=== PATIENT | female | born 1995 | race Caucasian/White ===

== ENCOUNTER 2017-12-25 11:06 | Inpatient (IN) ==
[2017-12-25] MEDS ORDERED: Ipratropium/Albuterol Neb 3 ML ONE (11:23)
[2017-12-25] MEDS ORDERED: Albuterol 2.5 MG/3 ML NEBULIZER IH ONE ×2 (11:30→18:03)
[2017-12-25] MEDS ORDERED: methylPREDNISolone 125 MG/2 ML VIAL IVP ONE (11:30)
--- NOTE | 2017-12-25 11:34 | Emergency Department Note ---
Disposition Clinical Impression: Hypoxia Asthma with exacerbation Qualifiers: Asthma severity: moderate Asthma persistence: persistent Qualified Code(s): J45.41 - Moderate persistent asthma with (acute) exacerbation Disposition: Admitted As Inpatient Condition: Fair Referrals: Lopez Wallis CNP [Primary Care Provider] - Forms: ED Satisfaction Letter Time of Disposition: 16:42 SOB HPI - General Chief Complaint: ED Shortness of Breath/Dyspnea Stated Complaint: ALYSA Time Seen by Provider: 12/25/17 11:25 Source: patient Limitations: no limitations Nursing Notes Reviewed: Yes Vital Signs Reviewed: Yes - History of Present Illness Mrs. Melendez, 22-year-old female 17 weeks , presents from home with for a history of progressive dyspnea with associated lightheadedness. Not improved with her home albuterol. She has productive cough. She notes right subcostal pain with deep inspiration. No fever. History of pneumonia at 17 weeks with first necessitating ICU stay. She states her symptoms today feel similar as her prior pneumonia but are not yet as severe. Her to date has been uncomplicated with appropriate care through her OB. OB: [facility] ROS: Positive: As above Negative: Syncope, contractions, vaginal discharge, fever, nausea, vomiting, change in appetite, change in urination - Related Data Home Medications Medication Instructions Recorded Confirmed Albuterol Sulfate [Albuterol 2 puff IH Q4HR 11/24/15 12/25/17 Inhaler] Pnv No.122/Iron/Folic Acid 1 tab PO DAILY 12/25/17 12/25/17 [ Multi Tablet] Previous Rx's Medication Instructions Recorded Albuterol Neb [Proventil Neb] 2.5 mg IH [id number] PRN #0 inhsol 05/07/16 Allergies Allergy/AdvReac Type Severity Reaction Status Date / Time Amoxicillin Allergy Hives Verified 12/25/17 11:17 Penicillins [PCN] Allergy Anaphylaxis Verified 12/25/17 11:17 Sulfa (Sulfonamide Allergy Hives Verified 12/25/17 11:17 Antibiotics) sulfamethoxazole Allergy Anaphylaxis Verified 12/25/17 11:17 [From Bactrim] trimethoprim [From Bactrim] Allergy Anaphylaxis Verified 12/25/17 11:17 All systems ED: reviewed and negative except as stated. Review of Systems: As Per HPI Past Medical History - Past Medical History Medical history: Reports: asthma, migraine, other Surgical history: Reports: Psychiatric history: Reports: depression - Social History Smoking Status: Former smoker Smokeless Tobacco Status: No Alcohol use: Reports: none Drug use: Reports: none Physical Exam Vital Signs Reviewed General: Patient is alert, oriented, and in no acute distress. Head: atraumatic, normocephalic Eye: normal appearance, PERRL, EOMI, no scleral icterus, no conjunctival injection ENT: mucous membranes moist, normal external ear exam Neck: normal inspection, trachea midline, full ROM Chest: normal inspection, symmetric chest rise Respiratory: Good respiratory effort. Bilateral breath sounds have profuse wheeze without crackles or rhonchi. Breath sounds equal bilaterally. Cardiovascular: Regular rate and rhythm. No clicks, rubs, gallops, or murmors. Normal heart sounds. Abdomen: Bowel sounds present normoactive x-4 quadrants. Abdomen is soft, nondistended, and nontender. No guarding or rebound. Musculoskeletal: Spontaneously moving all extremities. Skin: warm, dry, intact. Neuro: Alert and oriented x4. Sensation light touch intact. Psych: Patient's affect is appropriate for situation. - General Limitations: no limitations General appearance: alert, anxious, in distress Course Course Narrative: Patient is 91% on room air on intake. She has diffuse coarse wheezes. After albuterol nebulizer, she continues to be 91% on room air with no change in lung sounds. After DuoNeb nebulizer, she is now 92-93% on room air with no improvement in lung sounds. She continues to be tachycardic hours no longer tachypneic. Chest x-ray is unremarkable for pneumonia. Neither myself nor the patient are comfortable with her going home in her current state. She was agreeable to admission for continued evaluation and management. I discussed the patient with the admitting hospital is. He is uncomfortable except in position without obstetric consult, pulmonology consult, and ABG. Will provide these and then re-contact him. 15:00 I spoke with Sonali of [employer] regarding the patient. She is agreeable to etc. consult and notes no restrictions from an obstetric standpoint on nebulizers or antibiotics. 15:[address] Rogel, pulmonology who agrees to see the patient as consult. He has no additional recommendations at this time. 16:15 Spoke with the admitting hospitalist, Dr. Yanez, agrees to accept the patient with pulmonology and OB following. He requests empiric antibiotic coverage for the patient. Patient is saturating 90% on room air. Lung sounds remain coarse after third nebulizer treatment. She has been evaluated by pulmonology who agrees the patient be admitted to the floor. She is nontoxic-appearing but still not yet baseline. Chest X-Ray 12/25/17 11:31 IMPRESSION: No acute cardiopulmonary disease. D/ / Jeremy Antunez MD / Jeremy Antunez MD Interpreting Provider: Jeremy Antunez MD Vital Signs Temperature 97.9 F 12/25/17 11:14 Pulse Rate 140 12/25/17 11:14 Respiratory Rate 24 12/25/17 11:14 Blood Pressure 116/63 12/25/17 11:14 O2 Sat by Pulse Oximetry 90 12/25/17 11:14 Temperature 97.9 F 12/25/17 11:14 Pulse Rate 132 12/25/17 15:41 Respiratory Rate 18 12/25/17 15:41 Blood Pressure 93/57 12/25/17 15:41 O2 Sat by Pulse Oximetry 94 12/25/17 15:41 Oxygen Delivery Oxygen Delivery Room Air Shortness of Breath/Dyspnea - Lab Data Result diagrams: 12/25/17 11:47 12/25/17 11:47 Lab Results 12/25/17 12/25/17 12/25/17 Range/Units 11:47 11:47 11:47 WBC 16.9 H (4.3-11.1) K/mcL RBC 4.60 (3.82-4.97) M/mcL Hgb 13.8 (11.5-15.4) g/dL Hct 39.3 (35.3-44.9) % MCV 85.4 (83.0-100.0) fL MCH 30.0 (28.0-33.3) pg MCHC 35.1 (31.6-35.5) g/dL RDW 12.7 (11.5-14.5) % Plt Count 251 (140-400) K/mcL MPV 10.6 (9.4-12.4) fL Immature Gran % 0.3 (0-4) % Seg Neutrophils % 81.0 % Lymphocytes % 9.6 % Monocytes % 3.6 % Eosinophils % 5.3 % Basophils % 0.2 % Neutrophils # 13.7 H (1.6-8.9) K/mcL Lymphocytes # 1.6 (0.6-4.6) K/mcL Monocytes # 0.6 (0.0-1.3) K/mcL Eosinophils # 0.9 H (0.0-0.6) K/mcL Basophils # 0.0 (0.0-0.2) K/mcL ABG pH (7.32-7.45) pH Units ABG pCO2 (35-45) mmHg ABG pO2 (85-104) mmHg ABG HCO3 (21-27) mEq/L ABG Total CO2 (20-26) mEq/L ABG O2 Saturation (95-98) % ABG Base Excess (-2 to 3) mEq/L Jack Test O2 Delivery Device Inspired O2 (1-15=lpm [id number]=%) Sodium 135 L (136-145) mEq/L Potassium 4.1 (3.5-5.1) mEq/L Chloride 105 (98-107) mEq/L Carbon Dioxide 24 (23-29) mEq/L BUN 7 (6-20) mg/dL Creatinine 0.52 L (0.60-1.20) mg/dL Est GFR ( Amer) > 60 (> 60) Est GFR (Non-Af Amer) > 60 (> 60) BUN/Creatinine Ratio 13 (6-26) Glucose 87 (70-105) mg/dL Calculated Osmolality 277 L (280-300) Lactic Acid 1.1 (0.5-2.2) mmol/L Calcium 9.8 (8.6-10.3) mg/dL 12/25/17 Range/Units 15:55 WBC (4.3-11.1) K/mcL RBC (3.82-4.97) M/mcL Hgb (11.5-15.4) g/dL Hct (35.3-44.9) % MCV (83.0-100.0) fL MCH (28.0-33.3) pg MCHC (31.6-35.5) g/dL RDW (11.5-14.5) % Plt Count (140-400) K/mcL MPV (9.4-12.4) fL Immature Gran % (0-4) % Seg Neutrophils % % Lymphocytes % % Monocytes % % Eosinophils % % Basophils % % Neutrophils # (1.6-8.9) K/mcL Lymphocytes # (0.6-4.6) K/mcL Monocytes # (0.0-1.3) K/mcL Eosinophils # (0.0-0.6) K/mcL Basophils # (0.0-0.2) K/mcL ABG pH 7.49 H (7.32-7.45) pH Units ABG pCO2 26 L (35-45) mmHg ABG pO2 82 L (85-104) mmHg ABG HCO3 20 L (21-27) mEq/L ABG Total CO2 20 (20-26) mEq/L ABG O2 Saturation 97 (95-98) % ABG Base Excess -2 (-2 to 3) mEq/L Jack Test N/A O2 Delivery Device AeroTx Inspired O2 8.0 (1-15=lpm [id number]=%) Sodium (136-145) mEq/L Potassium (3.5-5.1) mEq/L Chloride (98-107) mEq/L Carbon Dioxide (23-29) mEq/L BUN (6-20) mg/dL Creatinine (0.60-1.20) mg/dL Est GFR ( Amer) (> 60) Est GFR (Non-Af Amer) (> 60) BUN/Creatinine Ratio (6-26) Glucose (70-105) mg/dL Calculated Osmolality (280-300) Lactic Acid (0.5-2.2) mmol/L Calcium (8.6-10.3) mg/dL
[2017-12-25 12:02] LABS: Basophils % 0.2 %; Eosinophils # 0.9 K/mcL (0.0-0.6); Eosinophils % 5.3 %; Hematocrit 39.3 % (35.3-44.9); Hemoglobin 13.8 g/dL (11.5-15.4); Immature Granulocytes % 0.3 % (0-4); Lymphocytes # 1.6 K/mcL (0.6-4.6); Lymphocytes % 9.6 %; Mean Corpuscular HGB Conc 35.1 g/dL (31.6-35.5); Mean Corpuscular Volume 85.4 fL (83.0-100.0); Mean Platelet Volume 10.6 fL (9.4-12.4); Monocytes # 0.6 K/mcL (0.0-1.3); Monocytes % 3.6 %; Neutrophils # 13.7 K/mcL (1.6-8.9); Platelet Count 251 K/mcL (140-400); Red Cell Distribution Width 12.7 % (11.5-14.5)
[2017-12-25 12:25] LABS: BUN/Creatinine Ratio 13 (6-26); Blood Urea Nitrogen 7 mg/dL (6-20); Calcium 9.8 mg/dL (8.6-10.3); Carbon Dioxide 24 mEq/L (23-29); Chloride 105 mEq/L (98-107); Glucose 87 mg/dL (70-105); Osmolality,Calculated 277 (280-300); Potassium 4.1 mEq/L (3.5-5.1); Sodium 135 mEq/L (136-145); eGFR For African Americans > 60 (> 60); eGFR For Non-African Americans > 60 (> 60)
[2017-12-25] MEDS ORDERED: Ipratropium/Albuterol Neb 3 ML IH ONE (13:08)
--- NOTE | 2017-12-25 13:20 | Emergency Department Note ---
START Narrative - START START: I examined this patient and my medical decision-making was reviewed with the Resident Physician. I agree with the documented findings, disposition and treatment plan as described except to the extent set forth below. 22-year-old female who is currently 17 weeks presents to the ER for asthma problems. She was concerned she was developing pneumonia again. She has had this in the past. She also has a history of asthma. Her chest x-ray today is unremarkable. No signs of pneumonia. She was slightly hypoxic upon arrival. She was given some breathing treatments. This did seem to improve. She is still feeling slightly short of breath with some pressure and wheezing. We will repeat another breathing treatment. She was also given steroids.
[2017-12-25] MEDS ORDERED: Albuterol Neb 1.25 MG/3 ML VIAL IH ONE (15:04)
[2017-12-25 15:59] LABS: ABG Base Excess -2 mEq/L (-2 to 3); ABG HCO3 20 mEq/L (21-27); ABG Oxygen Saturation 97 % (95-98); ABG PCO2 26 mmHg (35-45); ABG PH 7.49 pH Units (7.32-7.45); ABG PO2 82 mmHg (85-104); ABG TCO2 20 mEq/L (20-26)
[2017-12-25] MEDS ORDERED: Clindamycin 900 MG/50 ML 900 MG/50 ML IV.SOLN IVPB ONE (16:15)
--- NOTE | 2017-12-25 16:27 | Pulmonology Consult Note ---
Date of Encounter: 12/26/17 Time of Encounter: 15:45 Assessment and Plan (1) Asthma exacerbation Current Visit: No Status: Acute Patient is being having worsening of her symptoms and she is requiring more use of short-acting bronchodilators. Asthmatic could worsen in / of October and patient with asthma and I have explained to her about side effects of the bronchodilators and benefits of the treatment outweighed the risks and she understand that. Patient will need bronchodilators and systemic steroid and her ABG is consistent with respiratory alkalosis which could be normal physiologic changes in , however there is some evidence of hypoxia and patient will be admitted to the hospital. I have explained to her when she discharged from the hospital she needs to follow up with the pulmonary clinic since she is undertreated for her asthma. This is discussed with the ER physician and thank you for consultation we will continue follow-up. Qualifiers: Asthma severity: severe Asthma persistence: persistent Qualified Code(s) : J45.51 - Severe persistent asthma with (acute) exacerbation (2) Asthma affecting , antepartum Current Visit: No Status: Chronic (3) 17 weeks gestation of Current Visit: No Status: Acute History of Present Illness Consult date: 12/25/17 Requesting physician: Hernan Tomlin Reason for consult: asthma Chief complaint: Difficulty breathing History of present illness: This is very pleasant 22-year-old female with history of asthma and she is been using short-acting bronchodilators for her asthma which has been worsening lately. This is her second and she stated she had pneumonia with her first and she is 17 weeks . Patient has more shortness of breath associated with lightheadedness and denies any hemoptysis. She also has productive cough with chest pain during deep inspiration. She denies any fever or chills and she has not been taking antibiotics. 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 She denies any previous intubation or recent hospitalization for asthma exacerbation. Past Med Surg Social Fam HX - Past Medical History Medical history: asthma, migraine, other Psychiatric history: depression - Past Surgical History Surgical History: - Social History Smoking Status: Former smoker Smokeless Tobacco Status: No Alcohol use: none Drug use: none - Family History Mother Adopted: No Family Member Ethnicity: Non- Living Status: Still Living Hx Family Cardiac Disorders: No Hx Family Respiratory Disorders: No Hx Family Cancer: No Hx Family GI Disorders: No Hx Family Endocrine Disorder: No Hx Family Neuromuscular Disorders: No Hx Family Neurologic Disorders: No Hx Family HEENT Disorders: No Hx Family Autoimmune Disorders: No Medications and Allergies Albuterol Sulfate [Albuterol Inhaler] 2 puff IH Q4HR 11/24/15 [History] Albuterol Neb [Proventil Neb] 2.5 mg IH [id number] PRN #0 inhsol 05/07/16 [Rx] Pnv No.122/Iron/Folic Acid [ Multi Tablet] 1 tab PO DAILY 12/25/17 [ History] 3 Allergy/AdvReac Type Severity Reaction Status Date / Time Amoxicillin Allergy Hives Verified 12/25/17 11:17 Penicillins [PCN] Allergy Anaphylaxis Verified 12/25/17 11:17 Sulfa (Sulfonamide Allergy Hives Verified 12/25/17 11:17 Antibiotics) sulfamethoxazole Allergy Anaphylaxis Verified 12/25/17 11:17 [From Bactrim] trimethoprim [From Bactrim] Allergy Anaphylaxis Verified 12/25/17 11:17 All Systems: The remainder of the systems were reviewed and are negative Physical Examination Vital Signs: Vital Signs, Last 4 Hours Pulse Resp BP Pulse Ox 12/25/17 15:41 132 18 93/57 94 12/25/17 13:46 130 18 91 12/25/17 12:48 128 20 91/66 95 General appearance: no acute distress Eyes: nonicteric ENT: oropharynx moist Mallampati (class): 3 Neck: supple Effort: normal Inspection: normal Auscultation: bilateral: wheezes Percussion: bilateral: not dull Cardiovascular: regular rate and rhythm Gastrointestinal: normoactive bowel sounds, non-distended, other ( abdomen) Integumentary: normal Extremities: no cyanosis normal mental status, non-focal exam mood appropriate Results - Laboratory Findings CBC and BMP: 12/26/17 03:32 12/26/17 03:32 ABG ABG pH 7.49 pH Units (7.32-7.45) H 12/25/17 15:55 ABG pCO2 26 mmHg (35-45) L 12/25/17 15:55 ABG pO2 82 mmHg (85-104) L 12/25/17 15:55 ABG O2 Saturation 97 % (95-98) 12/25/17 15:55 Abnormal lab findings: Abnormal lab results WBC 16.9 K/mcL (4.3-11.1) H 12/25/17 11:47 Neutrophils # 13.7 K/mcL (1.6-8.9) H 12/25/17 11:47 Eosinophils # 0.9 K/mcL (0.0-0.6) H 12/25/17 11:47 ABG pH 7.49 pH Units (7.32-7.45) H 12/25/17 15:55 ABG pCO2 26 mmHg (35-45) L 12/25/17 15:55 ABG pO2 82 mmHg (85-104) L 12/25/17 15:55 ABG HCO3 20 mEq/L (21-27) L 12/25/17 15:55 Sodium 135 mEq/L (136-145) L 12/25/17 11:47 Creatinine 0.52 mg/dL (0.60-1.20) L 12/25/17 11:47 Calculated Osmolality 277 (280-300) L 12/25/17 11:47 - Diagnostic Findings Chest x-ray: report reviewed, image reviewed - Clinical Findings Intake & Output: Intake & Output 12/25/17 12/25/17 12/25/17 07:59 15:59 23:59 Weight 95.254 kg Consult Discharge Plan - Plan Referrals: Lopez Wallis CNP [Primary Care Provider] -
[2017-12-25] MEDS ORDERED: Levalbuterol Neb 1.25 MG/3 ML IH STA (18:19)
[2017-12-25] MEDS ORDERED: predniSONE 20 MG TABLET PO SCH (21:00)
--- NOTE | 2017-12-25 21:19 | OB/GYN Consult Note ---
Date of Encounter: 12/25/17 Time of Encounter: 21:13 Assessment and Plan (1) Pain of round ligament affecting , antepartum Current Visit: Yes Status: Acute Pain reproducible with palpation. Pt educated regarding this type of pain. (2) Asthma with exacerbation Current Visit: Yes Status: Acute Management per primary team. Qualifiers: Asthma severity: moderate Asthma persistence: persistent Qualified Code(s ): J45.41 - Moderate persistent asthma with (acute) exacerbation (3) 17 weeks gestation of Current Visit: No Status: Acute FHT 152 BPM via doppler. We will continue to follow and get daily FHT. History of Present Illness Consult date: 12/25/17 Reason for consult: other (17 weeks gestation with acute asthma exacerbation) Chief complaint: shortness of breath History of present illness: 22 year-old presenting at 17 weeks gestation for shortness of breath. She has asthma that worsens when she is . She reports she was admitted to ICU at this same gestational age with her last for her asthma. She states the shortness of breath and wheezing started getting worse yesterday so she went to see her doctor today. She was prescribed antibiotics and steroids, but after her appt she became increasingly short of breath and decided to come to the ER. She reports no other complications with this or her first. SHe had a delivery at 41 weeks last after a failed IOL. Today she denies contractions, leaking, or bleeding. SHe does report occassional sharp pains in her LLQ that are consistent with round ligament pain. Past Med Surg Social Fam HX - Past Medical History Medical history: asthma, migraine, other Psychiatric history: depression - Past Surgical History Surgical History: - Social History Smoking Status: Former smoker Smokeless Tobacco Status: No Alcohol use: none Drug use: none - Family History Mother Adopted: No Family Member Ethnicity: Non- Living Status: Still Living Hx Family Cardiac Disorders: No Hx Family Respiratory Disorders: No Hx Family Cancer: No Hx Family GI Disorders: No Hx Family Endocrine Disorder: No Hx Family Neuromuscular Disorders: No Hx Family Neurologic Disorders: No Hx Family HEENT Disorders: No Hx Family Autoimmune Disorders: No Medications and Allergies Albuterol Sulfate [Albuterol Inhaler] 2 puff IH Q4HR 11/24/15 [History] Albuterol Neb [Proventil Neb] 2.5 mg IH [id number] PRN #0 inhsol 05/07/16 [Rx] Pnv No.122/Iron/Folic Acid [ Multi Tablet] 1 tab PO DAILY 12/25/17 [ History] 3 Allergy/AdvReac Type Severity Reaction Status Date / Time Amoxicillin Allergy Hives Verified 12/25/17 11:17 Penicillins [PCN] Allergy Anaphylaxis Verified 12/25/17 11:17 Sulfa (Sulfonamide Allergy Hives Verified 12/25/17 11:17 Antibiotics) sulfamethoxazole Allergy Anaphylaxis Verified 12/25/17 11:17 [From Bactrim] trimethoprim [From Bactrim] Allergy Anaphylaxis Verified 12/25/17 11:17 Review of Systems Constitutional: no fever(s), no headache(s) Cardiovascular: dyspnea Respiratory: dyspnea Genitourinary Female: pelvic pain (occassional sharp LLQ pain) Menstruation: amenorrhea (due to ) Exam - Vital Signs Vital signs: Initial Vital Signs Temp Pulse Resp BP Pulse Ox 97.9 F 140 24 116/63 90 12/25/17 11:14 12/25/17 11:14 12/25/17 11:14 12/25/17 11:14 12/25/17 11:14 - Constitutional Constitutional: well developed, well nourished - HEENT HEENT: Mucus Membranes Moist - Lungs Respiratory exam: respiratory distress, wheezes (in all lung winn, on 4 liters ) - Cardiovascular Cardiovascular exam: tachycardia - Abdomen Abdomen: Present: gravid, non tender - Extremities Extremities exam: normal inspection - Uterus Uterus exam: Present: normal size. Absent: tender - Comments Comments: FHT 152 via doppler Results Result Diagrams: 12/25/17 11:47 12/25/17 11:47 Abnormal lab results WBC 16.9 K/mcL (4.3-11.1) H 12/25/17 11:47 Neutrophils # 13.7 K/mcL (1.6-8.9) H 12/25/17 11:47 Eosinophils # 0.9 K/mcL (0.0-0.6) H 12/25/17 11:47 ABG pH 7.49 pH Units (7.32-7.45) H 12/25/17 15:55 ABG pCO2 26 mmHg (35-45) L 12/25/17 15:55 ABG pO2 82 mmHg (85-104) L 12/25/17 15:55 ABG HCO3 20 mEq/L (21-27) L 12/25/17 15:55 Sodium 135 mEq/L (136-145) L 12/25/17 11:47 Creatinine 0.52 mg/dL (0.60-1.20) L 12/25/17 11:47 Calculated Osmolality 277 (280-300) L 12/25/17 11:47 All other labs normal. Consult Discharge Plan - Plan Referrals: Lopez Wallis, [employer] ADMINISTRATOR [Primary Care Provider] -
[2017-12-25] MEDS: Budesonide/Formoterol 160/4.5 MDI IH SCH (21:44)
[2017-12-25] MEDS ORDERED: Naloxone 0.4 MG/ML INJ IVP PRN (22:27)
[2017-12-25 22:36] LABS: ABG Base Excess -3 mEq/L (-2 to 3); ABG HCO3 19 mEq/L (21-27); ABG Oxygen Saturation 95 % (95-98); ABG PCO2 27 mmHg (35-45); ABG PH 7.46 pH Units (7.32-7.45); ABG PO2 68 mmHg (85-104); ABG TCO2 20 mEq/L (20-26)
--- NOTE | 2017-12-25 22:44 | Internal Med History&Physical ---
Date of Encounter: 12/25/17 Time of Encounter: 22:37 Internal Medicine - H&P: HPI Chief complaint: shortness of breath Admitted From: Emergency Dept Plans for Post Hospital Care: Home History of present illness: Ms. Melendez is a 22 year old female was a background history of her bronchial asthma, she was taking short-acting bronchodilators from her primary care provider and was not placed on any steroids. Patient is 17 weeks came to emergency room with the persistent shortness of breath. Patient went to her primary care provider with the similar symptoms and received steroids/antibiotics. Patient tried those medication but apparently her symptoms were progressively getting worse and that is the reason she came to emergency room for further evaluation. This is the patient's second and during her first when she was 17 weeks , at that time she had a pneumonia/exacerbation of bronchial asthma for which she was hospitalized and admitted in the ICU. She was never intubated at that time. Patient has a consultation at [facility]. Patient denies fever, nausea, vomiting, change in urination, any contractions. Workup in the emergency room: Patient was evaluated in the emergency room. Basic labs were drawn. Patient was evaluated by hand cell tuber and recommended oral prednisone/inhaled steroids. Patient was seen by COBBLER SOLE and has no preference for antibiotics/bronchodilators. As per pulmonary, patient does not need ICU stay. Reason for admission: Acute exacerbation of bronchial asthma in a patient who 17 week . Past Med Surg Social Fam HX - Past Medical History Medical history: asthma, migraine, other Psychiatric history: depression - Past Surgical History Surgical History: - Social History Smoking Status: Former smoker Smokeless Tobacco Status: No Alcohol use: none Drug use: none - Family History Mother Adopted: No Family Member Ethnicity: Non- Living Status: Still Living Hx Family Cardiac Disorders: No Hx Family Respiratory Disorders: No Hx Family Cancer: No Hx Family GI Disorders: No Hx Family Endocrine Disorder: No Hx Family Neuromuscular Disorders: No Hx Family Neurologic Disorders: No Hx Family HEENT Disorders: No Hx Family Autoimmune Disorders: No Internal Medicine - H&P: Meds Albuterol Sulfate [Albuterol Inhaler] 2 puff IH Q4HR 11/24/15 [History] Albuterol Neb [Proventil Neb] 2.5 mg IH [id number] PRN #0 inhsol 05/07/16 [Rx] Pnv No.122/Iron/Folic Acid [ Multi Tablet] 1 tab PO DAILY 12/25/17 [ History] 3 Allergy/AdvReac Type Severity Reaction Status Date / Time Amoxicillin Allergy Hives Verified 12/25/17 11:17 Penicillins [PCN] Allergy Anaphylaxis Verified 12/25/17 11:17 Sulfa (Sulfonamide Allergy Hives Verified 12/25/17 11:17 Antibiotics) sulfamethoxazole Allergy Anaphylaxis Verified 12/25/17 11:17 [From Bactrim] trimethoprim [From Bactrim] Allergy Anaphylaxis Verified 12/25/17 11:17 All Systems PM: A 10-system review of systems was performed and is negative for pertinent findings except as documented above in the HPI. - Constitutional Constitutional: no chills, no fever(s), no night sweats - EENT Eyes: no change in vision, no discharge, no pain, no photophobia Ears: no ear discharge, no ear pain, no tinnitus Nose, mouth and throat: no dysphagia, no nasal discharge, no neck pain, no sore throat - Cardiovascular Cardiovascular ROS IM: no chest pain, no diaphoresis, no dyspnea, no lightheadedness, no palpitations, no syncope - Respiratory Respiratory: no cough, no dyspnea, no wheezing, no excessive phlegm production - Gastrointestinal Gastrointestinal: no abdominal pain, no diarrhea, no hematemesis, no hematochezia, no melena, no nausea, no vomiting - Genitourinary Genitourinary: no change in urinary stream, no dysuria, no flank pain, no hematuria - Musculoskeletal Musculoskeletal ROS IM: no numbness, no tingling - Integumentary Integumentary IM: no rash, no unusual bruising - Neurological Neurological ROS: no confusion, no convulsions, no focal weakness, no numbness, no tingling, no tremor(s) - Hematologic/Lymphatic Hematologic/Lymphatic: no easy bruising - Constitutional Vitals: Temp Pulse Resp BP Pulse Ox 97.6 F 132 20 125/65 91 12/25/17 21:07 12/25/17 21:07 12/25/17 21:45 12/25/17 21:07 12/25/17 21:45 General appearance: Present: A&O X 3, pleasant, no acute distress, answers questions appropriately - Head Head exam: Present: atraumatic, normocephalic - Eye Eye exam: Present: PERRL, conjuntiva pink, sclera anicteric Pupils: Present: PERRL - Neck Neck exam general surgery: Present: supple, trachea midline. Absent: lymphadenopathy - Respiratory Respiratory exam: Present: accessory muscle use, CTAB, prolonged expiratory phase, wheezes. Absent: rales, rhonchi - Cardiovascular Cardiovascular exam: Present: RRR, +S1, +S2. Absent: diastolic murmur, gallop, rubs, systolic murmur - GI/Abdominal GI/Abdominal exam: Present: normal bowel sounds, soft, no peritoneal signs. Absent: distended, tenderness - Extremities Exam Extremities exam: Present: warm, radial pulses palpable and symmetrical. Absent : calf tenderness, cyanotic, pedal edema - Neurological Exam Neurological exam: Present: CN II-XII intact, oriented X3, no focal deficits. Absent: pronater drift, facial droop, speech deficit - Skin Skin exam: Present: dry, intact Internal Med - H&P Results - Labs CBC & Chem 7: 12/25/17 11:47 12/25/17 11:47 - ABG Interpretation ABG results: 12/25/17 22:33 ABG pH 7.46 H ABG pCO2 27 L ABG pO2 68 L ABG HCO3 19 L ABG Total CO2 20 ABG O2 Saturation 95 ABG Base Excess -3 L - Assessment and plan (1) Asthma with exacerbation Current Visit: Yes Status: Acute Assessment and plan: Patient is known to have of bronchial asthma since age of 3 years. Admitted with asthma exacerbation. Precipitating factor: Possible /infection. Plan: Admitted stepdown unit. Telemetry. Continuous pulse oximetry. Oxygen supplementation to keep SPO2 more than 95. Regular diet. Intravenous clindamycin Oral prednisone/inhaled corticosteroids. We will follow the recommendations from pulmonology. We will follow the recommendations from COBBLER SOLE. If patient clinically worsens then we will transfer her to ICU for further evaluation/management. Plan of care discussed with the patient and she verbalized understanding. At the time of examination patient's fiance was present in the room and she gave permission to talk about her health in front of him. Qualifiers: Asthma severity: moderate Asthma persistence: persistent Qualified Code(s ): J45.41 - Moderate persistent asthma with (acute) exacerbation (2) 17 weeks gestation of Current Visit: No Status: Acute Assessment and plan: Patient is 17 weeks at this time point. We will get opinion from COBBLER SOLE. We will follow the recommendations. I understood that COBBLER SOLE does not have any preference regarding antibiotics/ normal limits. In view of multiple allergies we will place patient on clindamycin which was initiated by emergency room physician.. (3) DVT prophylaxis Current Visit: No Status: Acute Assessment and plan: SCD Medical decision making: This patient has a moderate to severe risk of worsening in spite of being on appropriate medication due to the underlying complex medical comorbid conditions. - Time Spent With Patient Total time spent is greater than 50% in coordination of care (as documented) at patient's floor/unit and/or counseling patient:
[2017-12-25] MEDS: Ipratropium/Albuterol Neb 3 ML IH SCH (23:49)
[2017-12-26] MEDS: Clindamycin 900 MG/50 ML 900 MG/50 ML IV.SOLN IVPB SCH ×4 (00:05→23:36)
[2017-12-26 03:43] LABS: Basophils % 0.1 %; Hematocrit 37.2 % (35.3-44.9); Hemoglobin 13.3 g/dL (11.5-15.4); Immature Granulocytes % 0.8 % (0-4); Lymphocytes # 0.9 K/mcL (0.6-4.6); Lymphocytes % 4.1 %; Mean Corpuscular HGB Conc 35.8 g/dL (31.6-35.5); Mean Platelet Volume 10.7 fL (9.4-12.4); Monocytes # 0.5 K/mcL (0.0-1.3); Monocytes % 2.4 %; Neutrophils # 20.9 K/mcL (1.6-8.9); Platelet Count 272 K/mcL (140-400); Red Blood Count 4.43 M/mcL (3.82-4.97); Red Cell Distribution Width 12.3 % (11.5-14.5); Segmented Neutrophils % 92.6 %
[2017-12-26] MEDS: Ipratropium/Albuterol Neb 3 ML IH SCH ×6 (03:47→23:28)
[2017-12-26 03:56] LABS: INR 1.1; Prothrombin Time 11.8 Seconds (9.4-12.1)
[2017-12-26 03:58] LABS: Activated Partial Thrombo Time 29.8 Seconds (26.0-36.0)
[2017-12-26 04:07] LABS: Alanine Aminotransferase 11 Units/L (7-52); Albumin/Globulin Ratio 1.3 (1.1-2.2); Alkaline Phosphatase 61 Units/L (34-104); Aspartate Amino Transferase 9 Units/L (13-39); BUN/Creatinine Ratio 14 (6-26); Bilirubin,Total 0.3 mg/dL (0.3-1.0); Blood Urea Nitrogen 7 mg/dL (6-20); Calcium 9.8 mg/dL (8.6-10.3); Carbon Dioxide 19 mEq/L (23-29); Chloride 103 mEq/L (98-107); Globulin 3.1 g/dL (2.4-3.5); Glucose 123 mg/dL (70-105); Magnesium 1.8 mg/dL (1.6-2.6); Osmolality,Calculated 275 (280-300); Potassium 3.9 mEq/L (3.5-5.1); Sodium 133 mEq/L (136-145); Total Protein 7.1 g/dL (6.4-8.9); eGFR For African Americans > 60 (> 60); eGFR For Non-African Americans > 60 (> 60)
[2017-12-26] MEDS ORDERED: Albuterol 2.5 MG/3 ML NEBULIZER IH PRN (04:50)
--- NOTE | 2017-12-26 04:58 | Event Note ---
Date of Encounter: 12/26/17 Time of Encounter: 04:52 Called by RN to see patient for concerns of respiratory distress. Patient sleeping and easily arousable, She is tachycardic and tachypneic. She feels much better than her presentation in ER. She is wheezing somewhat but still "tight" on auscultation. She does have some labored breathing. I am changing her steroids to IV Solumedrol and adding PRN Albuterol aerosols to her regimen. O2 sats are hovering around 94-97% on 10L Oximizer. If she declines clinically, she'll need to move to ICU. However, she feels better now and, clinically, she seems to be tolerating current treatments.
[2017-12-26] MEDS: MethylPREDNISolone 40 MG/ML VIAL IVP SCH ×2 (06:01→17:24)
[2017-12-26] MEDS: Budesonide/Formoterol 160/4.5 MDI IH SCH ×2 (08:01→19:52)
[2017-12-26] MEDS: Prenatal Vit/FA 1 EACH TABLET PO SCH (08:05)
--- NOTE | 2017-12-26 08:53 | Pulmonology Progress Note ---
<Juan Manuel Ayala - Last Filed: 12/26/17 09:05> Date of Encounter: 12/26/17 Time of Encounter: 08:51 Assessment and Plan (1) Asthma exacerbation Current Visit: No Status: Acute Admitted with asthma exacerbation; known to have of bronchial asthma since age of 3 years. Precipitating factor: Possible allergen exposure vs /infection. Admitted stepdown unit; placed on continuous telemetry and pulse oximetry. - O2 supplementation to keep SPO2 more than 95. - Proventil Neb 2.5 mg IH Q2 PRN - Symbicort 160/4.5 2 Puff IH BIDR - Robitussin/DM 5 ml PO Q6 PRN - Duoneb 3 ml IH Q4 - Solumedrol 40 mg IV Q12 Qualifiers: Asthma severity: severe Asthma persistence: persistent Qualified Code(s) : J45.51 - Severe persistent asthma with (acute) exacerbation (2) Leukocytosis Current Visit: No Status: Acute - Patient has an elevated white count at 22.5. Initial white count was 16.9 - Possibly secondary to steroid use; currently on Solumedrol 40 mg IV Q12 - No confirmed source of infection at this time; possible bronchitis - Denies fever, chills, or productive cough Qualifiers: Leukocytosis type: unspecified Qualified Code(s): D72.829 - Elevated white blood cell count, unspecified (3) 17 weeks gestation of Current Visit: No Status: Acute - Patient is 17 weeks at this time point. - Seen by GAS OPERATIONS ANALYST and has no preference for antibiotics/bronchodilators - Patient has multiple allergies; currently on Cleocin 900 mg IV Q8 (4) DVT prophylaxis Current Visit: No Status: Acute - SCDs Subjective Principal diagnosis: Asthma exacerbation Interval history: Patient was seen and examined at bedside this morning. Reports feeling much better today than she did on admission. Reports that she went to her moms house, where there are cats. She has a known allergy to cats and pollen, both of which she reports can trigger an asthma attack. She reports having a baseline anxiety, and has had a few brief panic attacks during her stay. She does not normally take any medication for anxiety; has a service dog which usually relieves her anxiety. Objective PUL Vital signs: Last Vital Signs Temp 98.5 F 12/26/17 04:24 Pulse 125 12/26/17 08:15 Resp 20 12/26/17 08:15 BP 112/66 12/26/17 07:39 Pulse Ox 94 12/26/17 08:17 General appearance: no acute distress Eyes: nonicteric ENT: oropharynx moist Neck: supple Effort: normal Auscultation: bilateral: clear, wheezes (High pitched inspiratory and expiratory wheezes present in all lung winn; most prominent in the middle lung winn ) Percussion: bilateral: not dull Tactile fremitus: bilateral: normal Cardiovascular: regular rate and rhythm Gastrointestinal: normoactive bowel sounds, non-distended Integumentary: normal Extremities: no cyanosis, no edema, no clubbing Musculoskeletal: no deformities, ROM normal normal mental status, non-focal exam mood appropriate, affect normal Results - Laboratory Findings CBC and BMP: 12/26/17 03:32 12/26/17 03:32 ABG ABG pH 7.46 pH Units (7.32-7.45) H 12/25/17 22:33 ABG pCO2 27 mmHg (35-45) L 12/25/17 22:33 ABG pO2 68 mmHg (85-104) L 12/25/17 22:33 ABG O2 Saturation 95 % (95-98) 12/25/17 22:33 PT/INR, D-dimer PT 11.8 Seconds (9.4-12.1) 12/26/17 03:32 Abnormal lab findings: Abnormal lab results WBC 22.5 K/mcL (4.3-11.1) H 12/26/17 03:32 MCHC 35.8 g/dL (31.6-35.5) H 12/26/17 03:32 Neutrophils # 20.9 K/mcL (1.6-8.9) H 12/26/17 03:32 ABG pH 7.46 pH Units (7.32-7.45) H 12/25/17 22:33 ABG pCO2 27 mmHg (35-45) L 12/25/17 22:33 ABG pO2 68 mmHg (85-104) L 12/25/17 22:33 ABG HCO3 19 mEq/L (21-27) L 12/25/17 22:33 ABG Base Excess -3 mEq/L (-2 to 3) L 12/25/17 22:33 Sodium 133 mEq/L (136-145) L 12/26/17 03:32 Carbon Dioxide 19 mEq/L (23-29) L 12/26/17 03:32 Creatinine 0.49 mg/dL (0.60-1.20) L 12/26/17 03:32 Glucose 123 mg/dL (70-105) H 12/26/17 03:32 Calculated Osmolality 275 (280-300) L 12/26/17 03:32 AST 9 Units/L (13-39) L 12/26/17 03:32 - Clinical Findings Intake & Output: Intake & Output 12/25/17 12/26/17 12/26/17 23:59 07:59 15:59 Intake Total 50 / 50 50 / 50 Output Total 250 / 250 250 / 250 Balance -200 / -200 -200 / -200 Weight 96.8 kg 96.5 kg Consult Discharge Plan - Plan Referrals: Lopez Wallis CHANGE COORDINATOR [Primary Care Provider] - 01/02/18 11:00 am <Angel Rogel - Last Filed: 12/26/17 17:32> Date of Encounter: 12/26/17 Assessment and Plan (1) Asthma exacerbation Current Visit: No Status: Acute Qualifiers: Asthma severity: severe Asthma persistence: persistent Qualified Code(s) : J45.51 - Severe persistent asthma with (acute) exacerbation (2) Asthma affecting , antepartum Current Visit: No Status: Chronic (3) 17 weeks gestation of Current Visit: No Status: Acute Objective PUL Vital signs: Last Vital Signs Temp 97.9 F 12/26/17 15:53 Pulse 105 12/26/17 17:25 Resp 20 12/26/17 17:25 BP 108/62 12/26/17 15:53 Pulse Ox 95 12/26/17 17:25 Results - Laboratory Findings CBC and BMP: 12/26/17 03:32 12/26/17 03:32 ABG ABG pH 7.46 pH Units (7.32-7.45) H 12/25/17 22:33 ABG pCO2 27 mmHg (35-45) L 12/25/17 22:33 ABG pO2 68 mmHg (85-104) L 12/25/17 22:33 ABG O2 Saturation 95 % (95-98) 12/25/17 22:33 PT/INR, D-dimer PT 11.8 Seconds (9.4-12.1) 12/26/17 03:32 Abnormal lab findings: Abnormal lab results WBC 22.5 K/mcL (4.3-11.1) H 12/26/17 03:32 MCHC 35.8 g/dL (31.6-35.5) H 12/26/17 03:32 Neutrophils # 20.9 K/mcL (1.6-8.9) H 12/26/17 03:32 ABG pH 7.46 pH Units (7.32-7.45) H 12/25/17 22:33 ABG pCO2 27 mmHg (35-45) L 12/25/17 22:33 ABG pO2 68 mmHg (85-104) L 12/25/17 22:33 ABG HCO3 19 mEq/L (21-27) L 12/25/17 22:33 ABG Base Excess -3 mEq/L (-2 to 3) L 12/25/17 22:33 Sodium 133 mEq/L (136-145) L 12/26/17 03:32 Carbon Dioxide 19 mEq/L (23-29) L 12/26/17 03:32 Creatinine 0.49 mg/dL (0.60-1.20) L 12/26/17 03:32 Glucose 123 mg/dL (70-105) H 12/26/17 03:32 POC Glucose 109 mg/dL (70-99) H 12/26/17 00:02 Calculated Osmolality 275 (280-300) L 12/26/17 03:32 AST 9 Units/L (13-39) L 12/26/17 03:32 - Clinical Findings Intake & Output: Intake & Output 12/26/17 12/26/17 12/26/17 07:59 15:59 23:59 Intake Total 50 / 50 Output Total 575 / 575 Balance -525 / -525 - Attending Attestation I examined this patient and my medical decision-making was reviewed with the Resident Physician. I agree with the documented findings, disposition and treatment plan as described except to the extent set forth below. Patient seen and examined. Labs, radiology, chart personally reviewed. Agree with resident's history and physical, assessment, plan with following comments: QUILL BUNCHER AND SORTER: Patient follows commands, Pulmonary: Acceptable oxygenation and ventilation. Patient is feeling much better on current treatment, however on physical examination she continued to have evidence of bronchospasm and to continue current treatment and this time and as soon as patient's breathing improved more then to start tapering systemic steroid because of the side effects on the fetus. We will continue follow-up. Cardiovascular: stable
--- NOTE | 2017-12-26 18:09 | Internal Med Progress Note ---
Date of Encounter: 12/26/17 Time of Encounter: 11:00 - Assessment and plan (1) Asthma with exacerbation Current Visit: Yes Status: Acute Assessment and plan: Patient still requiring high amount of O2 supplementation and with wheezing on exam Pulmonology consulted with recommendations to place patient on IV Solu-Medrol in addition to continue dual nebs Will continue supplemental oxygenation and reevaluate in the morning Pulmonology following and appreciate recommendations Qualifiers: Asthma severity: moderate Asthma persistence: persistent Qualified Code(s ): J45.41 - Moderate persistent asthma with (acute) exacerbation (2) 17 weeks gestation of Current Visit: No Status: Acute Assessment and plan: Patient is 17 weeks at this time point. SAND CASTER following and appreciate recommendations (3) DVT prophylaxis Current Visit: No Status: Acute Assessment and plan: SCD - Time Spent With Patient Total time spent is greater than 50% in coordination of care (as documented) at patient's floor/unit and/or counseling patient: - Subjective Interval history: Patient continues to require high amount of O2 supplementation and his wheezing on exam - Constitutional Vitals: Temp Pulse Resp BP Pulse Ox 97.9 F 105 20 108/62 95 12/26/17 15:53 12/26/17 17:25 12/26/17 17:25 12/26/17 15:53 12/26/17 17:25 General appearance: Present: A&O X 3, pleasant, no acute distress, answers questions appropriately - Respiratory Respiratory exam: Present: wheezes. Absent: respiratory distress, tachypnea - Cardiovascular Cardiovascular exam: Present: RRR, +S1, +S2. Absent: diastolic murmur, gallop, rubs, systolic murmur Internal Medicine: Result - Labs CBC & Chem 7: 12/26/17 03:32 12/26/17 03:32 - ABG Interpretation ABG results: ABG ABG pH 7.46 pH Units (7.32-7.45) H 12/25/17 22:33 ABG pCO2 27 mmHg (35-45) L 12/25/17 22:33 ABG pO2 68 mmHg (85-104) L 12/25/17 22:33 ABG O2 Saturation 95 % (95-98) 12/25/17 22:33 PT/INR, D-dimer PT 11.8 Seconds (9.4-12.1) 12/26/17 03:32 Consult Discharge Plan - Plan Referrals: Lopez Walils CNP [Primary Care Provider] - 01/02/18 11:00 am
--- NOTE | 2017-12-26 21:16 | OB/GYN Progress Note ---
Date of Encounter: 12/26/17 Time of Encounter: 21:13 - Assessment and Plan (1) 17 weeks gestation of Current Visit: No Status: Acute Continue FHT daily while admitted (2) Asthma exacerbation Current Visit: No Status: Acute Continue management per admitting provider. Qualifiers: Asthma severity: severe Asthma persistence: persistent Qualified Code(s) : J45.51 - Severe persistent asthma with (acute) exacerbation Subjective - Subjective Principal diagnosis: Asthma exacerbation during Interval history: Patient reports she is feeling better since this morning. Her O2 has been reduced from 10L via face mask to 6L via nasal cannula. Objective - Vital Signs Vital Signs: Vital Signs Temp Pulse Resp BP Pulse Ox 12/26/17 20:01 97.7 F 114 18 115/71 92 12/26/17 19:52 18 96 12/26/17 17:25 105 20 95 12/26/17 16:44 113 20 97 12/26/17 16:38 102 12/26/17 16:34 98 12/26/17 15:53 97.9 F 122 19 108/62 97 12/26/17 14:07 107 20 96 12/26/17 12:12 97.8 F 12/26/17 11:37 138 12/26/17 11:32 124 18 123/68 93 12/26/17 11:30 18 108/62 93 12/26/17 10:11 122 18 93 Intake and Output 12/26/17 12/26/17 12/26/17 07:59 15:59 23:59 Intake Total 50 / 50 Output Total 575 / 575 Balance -525 / -525 Intake: IV Fluids 50 / 50 Cleocin Premix 900 MG/50 ML 900 50 / 50 mg In 50 ml @ 50 mls/hr IVPB Q8HR [facility] Rx#:[id number] Oral 0 / 0 Output: Urine 575 / 575 Other: Meal Lunch Percent of Meal Consumed 0% Blood Glucose* 106 113 - Exam FHR: auscultation normal (FHT 155 via handheld doppler) Auscultation: bilateral: diminished throughout Abdomen: Present: normal appearance, soft Uterus: Present: normal, firm - Labs Labs: Abnormal lab results WBC 22.5 K/mcL (4.3-11.1) H 12/26/17 03:32 MCHC 35.8 g/dL (31.6-35.5) H 12/26/17 03:32 Neutrophils # 20.9 K/mcL (1.6-8.9) H 12/26/17 03:32 ABG pH 7.46 pH Units (7.32-7.45) H 12/25/17 22:33 ABG pCO2 27 mmHg (35-45) L 12/25/17 22:33 ABG pO2 68 mmHg (85-104) L 12/25/17 22:33 ABG HCO3 19 mEq/L (21-27) L 12/25/17 22:33 ABG Base Excess -3 mEq/L (-2 to 3) L 12/25/17 22:33 Sodium 133 mEq/L (136-145) L 12/26/17 03:32 Carbon Dioxide 19 mEq/L (23-29) L 12/26/17 03:32 Creatinine 0.49 mg/dL (0.60-1.20) L 12/26/17 03:32 Glucose 123 mg/dL (70-105) H 12/26/17 03:32 POC Glucose 106 mg/dL (70-99) H 12/26/17 15:56 Calculated Osmolality 275 (280-300) L 12/26/17 03:32 AST 9 Units/L (13-39) L 12/26/17 03:32
[2017-12-27] MEDS: Ipratropium/Albuterol Neb 3 ML IH SCH ×6 (04:21→23:46)
[2017-12-27] MEDS: MethylPREDNISolone 40 MG/ML VIAL IVP SCH ×2 (06:26→17:34)
[2017-12-27] MEDS ORDERED: Loratadine 10 MG TABLET PO ONE (06:30)
[2017-12-27] MEDS ORDERED: Famotidine 20 MG TABLET PO ONE (06:45)
[2017-12-27] MEDS: Budesonide/Formoterol 160/4.5 MDI IH SCH ×2 (07:14→19:38)
[2017-12-27] MEDS: Clindamycin 900 MG/50 ML 900 MG/50 ML IV.SOLN IVPB SCH (08:07)
[2017-12-27] MEDS: Prenatal Vit/FA 1 EACH TABLET PO SCH (08:07)
[2017-12-27 10:27] LABS: Basophils % 0.1 %; Eosinophils % 0.1 %; Hematocrit 35.2 % (35.3-44.9); Hemoglobin 12.6 g/dL (11.5-15.4); Immature Granulocytes % 0.7 % (0-4); Lymphocytes # 1.1 K/mcL (0.6-4.6); Lymphocytes % 7.1 %; Mean Corpuscular HGB Conc 35.8 g/dL (31.6-35.5); Mean Corpuscular Hemoglobin 30.4 pg (28.0-33.3); Mean Corpuscular Volume 84.8 fL (83.0-100.0); Mean Platelet Volume 10.7 fL (9.4-12.4); Monocytes # 0.4 K/mcL (0.0-1.3); Monocytes % 2.6 %; Neutrophils # 13.3 K/mcL (1.6-8.9); Platelet Count 257 K/mcL (140-400); Red Blood Count 4.15 M/mcL (3.82-4.97); Red Cell Distribution Width 12.6 % (11.5-14.5); Segmented Neutrophils % 89.4 %
[2017-12-27 10:48] LABS: BUN/Creatinine Ratio 16 (6-26); Blood Urea Nitrogen 9 mg/dL (6-20); Calcium 9.9 mg/dL (8.6-10.3); Carbon Dioxide 24 mEq/L (23-29); Chloride 102 mEq/L (98-107); Glucose 116 mg/dL (70-105); Osmolality,Calculated 276 (280-300); Potassium 3.8 mEq/L (3.5-5.1); Sodium 133 mEq/L (136-145); eGFR For African Americans > 60 (> 60); eGFR For Non-African Americans > 60 (> 60)
--- NOTE | 2017-12-27 19:57 | Internal Med Progress Note ---
Date of Encounter: 12/27/17 Time of Encounter: 11:00 - Assessment and plan (1) Asthma with exacerbation Current Visit: Yes Status: Acute Assessment and plan: Patient not requiring high amounts of O2 supplementation this morning and has been weaned off Oxymask and is not on nasal cannula Pulmonology consulted with recommendations to place patient on IV Solu-Medrol in addition to continue dual nebs Will continue supplemental oxygenation and reevaluate in the morning Pulmonology following and appreciate recommendations Qualifiers: Asthma severity: moderate Asthma persistence: persistent Qualified Code(s ): J45.41 - Moderate persistent asthma with (acute) exacerbation (2) 17 weeks gestation of Current Visit: No Status: Acute Assessment and plan: Patient is 17 weeks at this time point. METAL INSPECTOR following and appreciate recommendations (3) DVT prophylaxis Current Visit: No Status: Acute Assessment and plan: SCD - Time Spent With Patient Total time spent is greater than 50% in coordination of care (as documented) at patient's floor/unit and/or counseling patient: - Subjective Interval history: Patient not requiring higher amounts of oxygen supplementation this morning and has been weaned down to now nasal cannula - Constitutional Vitals: Temp Pulse Resp BP Pulse Ox 98.3 F 117 14 106/60 93 12/27/17 16:03 12/27/17 17:31 12/27/17 19:39 12/27/17 16:03 12/27/17 19:39 General appearance: Present: A&O X 3, pleasant, no acute distress, answers questions appropriately - Respiratory Respiratory exam: Present: wheezes. Absent: respiratory distress - Cardiovascular Cardiovascular exam: Present: RRR, +S1, +S2. Absent: diastolic murmur, gallop, rubs, systolic murmur Internal Medicine: Result - Labs CBC & Chem 7: 12/27/17 10:13 12/27/17 10:13 Labs: Short CBC 12/27/17 Range/Units 10:13 WBC 14.9 H (4.3-11.1) K/mcL Hgb 12.6 (11.5-15.4) g/dL Hct 35.2 L (35.3-44.9) % Plt Count 257 (140-400) K/mcL Neutrophils # 13.3 H (1.6-8.9) K/mcL BMP 12/27/17 10:13 Sodium 133 L Potassium 3.8 Chloride 102 Carbon Dioxide 24 BUN 9 Creatinine 0.55 L Glucose 116 H Calcium 9.9 - ABG Interpretation ABG results: ABG ABG pH 7.46 pH Units (7.32-7.45) H 12/25/17 22:33 ABG pCO2 27 mmHg (35-45) L 12/25/17 22:33 ABG pO2 68 mmHg (85-104) L 12/25/17 22:33 ABG O2 Saturation 95 % (95-98) 12/25/17 22:33 PT/INR, D-dimer PT 11.8 Seconds (9.4-12.1) 12/26/17 03:32 Consult Discharge Plan - Plan Referrals: Lopez Wallis CNP [Primary Care Provider] - 01/02/18 11:00 am
[2017-12-27] MEDS ORDERED: Famotidine 20 MG TABLET PO PRN (23:23)
[2017-12-28] MEDS: Ipratropium/Albuterol Neb 3 ML IH SCH ×2 (04:10→08:16)
[2017-12-28] MEDS: MethylPREDNISolone 40 MG/ML VIAL IVP SCH (06:28)
--- NOTE | 2017-12-28 06:40 | Electrocardiograph Report ---
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
[2017-12-28 07:14] VITALS: BP 117/58
[2017-12-28] MEDS: Budesonide/Formoterol 160/4.5 MDI IH SCH (08:16)
[2017-12-28] MEDS: Prenatal Vit/FA 1 EACH TABLET PO SCH (08:28)
[2017-12-28 08:44] LABS: Basophils % 0.1 %; Eosinophils # 0.1 K/mcL (0.0-0.6); Eosinophils % 0.6 %; Hematocrit 34.7 % (35.3-44.9); Hemoglobin 11.9 g/dL (11.5-15.4); Immature Granulocytes % 0.9 % (0-4); Immature Platelets 2.8 % (1.1-6.1); Lymphocytes # 2.3 K/mcL (0.6-4.6); Lymphocytes % 15.2 %; Mean Corpuscular HGB Conc 34.3 g/dL (31.6-35.5); Mean Corpuscular Hemoglobin 29.7 pg (28.0-33.3); Mean Corpuscular Volume 86.5 fL (83.0-100.0); Mean Platelet Volume 10.8 fL (9.4-12.4); Monocytes # 0.6 K/mcL (0.0-1.3); Neutrophils # 11.9 K/mcL (1.6-8.9); Platelet Count 250 K/mcL (140-400); Red Blood Count 4.01 M/mcL (3.82-4.97); Red Cell Distribution Width 12.5 % (11.5-14.5); Segmented Neutrophils % 79.2 %
[2017-12-28] MEDS ORDERED: Azithromycin 250 MG TABLET PO SCH (09:00)
[2017-12-28 09:41] LABS: BUN/Creatinine Ratio 22 (6-26); Blood Urea Nitrogen 10 mg/dL (6-20); Calcium 8.9 mg/dL (8.6-10.3); Carbon Dioxide 24 mEq/L (23-29); Chloride 103 mEq/L (98-107); Glucose 95 mg/dL (70-105); Osmolality,Calculated 281 (280-300); Potassium 3.6 mEq/L (3.5-5.1); Sodium 136 mEq/L (136-145); eGFR For African Americans > 60 (> 60); eGFR For Non-African Americans > 60 (> 60)
--- NOTE | 2017-12-28 09:42 | Event Note ---
Date of Encounter: 12/28/17 Time of Encounter: 09:35 Patient resting in bed. Patient reports feeling occasional movement. Patient reports she is feeling better. Patient denies any vaginal bleeding, leaking of fluid or contractions. FHT 148 bpm per Doppler.
--- NOTE | 2017-12-28 10:55 | Pulmonology Progress Note ---
Date of Encounter: 12/28/17 Time of Encounter: 10:15 Assessment and Plan (1) Asthma exacerbation Current Visit: No Status: Resolved Patient clinically is feeling much better and is expected that on physical exam she will have some wheezing due to her underlying asthma and still being treated. Continue wean off FiO2 to keep SPO2 around 92%. If patient will be discharged home, continue bronchodilators and taper systemic steroid. I have given patient my business card to follow up in the office in about 2-4 weeks. Please call for any questions. Qualifiers: Asthma severity: severe Asthma persistence: persistent Qualified Code(s) : J45.51 - Severe persistent asthma with (acute) exacerbation (2) Asthma affecting , antepartum Current Visit: No Status: Chronic (3) 17 weeks gestation of Current Visit: No Status: Acute Subjective Principal diagnosis: Asthma exacerbation during Interval history: Patient is feeling much better and she has only mild wheezing. She feels her shortness of breath has improved. Objective PUL Vital signs: Last Vital Signs Temp 98.5 F 12/28/17 07:12 Pulse 80 12/28/17 07:12 Resp 20 12/28/17 08:18 BP 117/58 12/28/17 07:12 Pulse Ox 96 12/28/17 08:18 General appearance: no acute distress Eyes: nonicteric Neck: supple Effort: normal Auscultation: bilateral: wheezes Percussion: bilateral: not dull Cardiovascular: regular rate and rhythm Gastrointestinal: normoactive bowel sounds, non-distended Extremities: no cyanosis normal mental status, non-focal exam mood appropriate Results - Laboratory Findings CBC and BMP: 12/28/17 08:06 12/28/17 08:06 ABG ABG pH 7.46 pH Units (7.32-7.45) H 12/25/17 22:33 ABG pCO2 27 mmHg (35-45) L 12/25/17 22:33 ABG pO2 68 mmHg (85-104) L 12/25/17 22:33 ABG O2 Saturation 95 % (95-98) 12/25/17 22:33 PT/INR, D-dimer PT 11.8 Seconds (9.4-12.1) 12/26/17 03:32 Abnormal lab findings: Abnormal lab results WBC 15.1 K/mcL (4.3-11.1) H 12/28/17 08:06 Hct 34.7 % (35.3-44.9) L 12/28/17 08:06 Neutrophils # 11.9 K/mcL (1.6-8.9) H 12/28/17 08:06 ABG pH 7.46 pH Units (7.32-7.45) H 12/25/17 22:33 ABG pCO2 27 mmHg (35-45) L 12/25/17 22:33 ABG pO2 68 mmHg (85-104) L 12/25/17 22:33 ABG HCO3 19 mEq/L (21-27) L 12/25/17 22:33 ABG Base Excess -3 mEq/L (-2 to 3) L 12/25/17 22:33 Creatinine 0.45 mg/dL (0.60-1.20) L 12/28/17 08:06 AST 9 Units/L (13-39) L 12/26/17 03:32 - Clinical Findings Intake & Output: Intake & Output 12/27/17 12/28/17 12/28/17 23:59 07:59 15:59 Intake Total 120 / 120 Output Total 300 / 300 200 / 200 Balance -300 / -300 -200 / -200 120 / 120 Weight 99.5 kg Consult Discharge Plan - Plan Referrals: Lopez Wallis CNP [Primary Care Provider] - 01/02/18 11:00 am
--- NOTE | 2017-12-28 11:26 | Discharge Summary ---
- NOTES TO OUTPATIENT PROVIDER Notes to Outpatient Provider: Should to follow up with HIGHER EDUCATION ADMINISTRATOR Date of Encounter: 12/28/17 Time of Encounter: 11:00 - Discharge Diagnosis (1) Asthma with exacerbation Priority: Primary Status: Acute Qualifiers: Asthma severity: moderate Asthma persistence: persistent Qualified Code(s ): J45.41 - Moderate persistent asthma with (acute) exacerbation (2) 17 weeks gestation of Priority: Secondary Status: Acute Hospital course: Patient is a 22-year-old (GA-17 weeks) female with past medical history significant for asthma and mood disorder who presents to the ER on 12/26/17 due to shortness of breath. This is the patient's second and during her first when she was 17 weeks , at that time she had a pneumonia/exacerbation of bronchial asthma for which she was hospitalized and admitted in the ICU. She was never intubated at that time. Patient was admitted to the ICU and later transferred to the progressive unit. Patients shortness of breath and wheezing improved on IV Solu-Medrol in addition to IV antibiotics and DuoNebs. Patients acute hypoxic respiratory failure resolved and she was able to be weaned off oxygen. Patient will be discharged home to continue a 5 day course of azithromycin and to continue her Solu-Medrol pack. Patient should follow up with her radiation control technician. - Time Spent with Patient Total time spent providing and/or coordinating discharge services: Less than 30 minutes - Discharge Medications Prescriptions: Azithromycin [Zithromax] 500 mg PO DAILY 5 Days #10 tablet Budesonide/Formoterol 160/4.5 [Symbicort 160/4.5] 2 puff IH BIDR #1 inhaler Famotidine [Pepcid] 20 mg PO BID PRN #60 tablet PRN Reason: Indigestion Home Medications: Albuterol Sulfate [Albuterol Inhaler] 2 puff IH Q4HR 11/24/15 [History] Albuterol Neb [Proventil Neb] 2.5 mg IH [id number] PRN #0 inhsol 05/07/16 [Rx] Pnv No.122/Iron/Folic Acid [ Multi Tablet] 1 tab PO DAILY 12/25/17 [ History] Azithromycin [Zithromax] 500 mg PO DAILY 5 Days #10 tablet 12/28/17 [Rx] Budesonide/Formoterol 160/4.5 [Symbicort 160/4.5] 2 puff IH BIDR #1 inhaler [Rx] Famotidine [Pepcid] 20 mg PO BID PRN #60 tablet 12/28/17 [Rx] Allergies/Adverse Reactions: 3 Allergy/AdvReac Type Severity Reaction Status Date / Time Amoxicillin Allergy Hives Verified 12/25/17 11:17 Penicillins [PCN] Allergy Anaphylaxis Verified 12/25/17 11:17 Sulfa (Sulfonamide Allergy Hives Verified 12/25/17 11:17 Antibiotics) sulfamethoxazole Allergy Anaphylaxis Verified 12/25/17 11:17 [From Bactrim] trimethoprim [From Bactrim] Allergy Anaphylaxis Verified 12/25/17 11:17 Date of admission: 12/26/17 09:01 Primary care physician: Lopez Wallis CNP - Constitutional Vitals: Temp Pulse Resp BP Pulse Ox 98.5 F 80 20 117/58 96 12/28/17 07:12 12/28/17 07:12 12/28/17 08:18 12/28/17 07:12 12/28/17 08:18 General appearance: Present: A&O X 3, pleasant, no acute distress, answers questions appropriately - Respiratory Respiratory exam: Present: wheezes - Cardiovascular Cardiovascular exam: Present: RRR, +S1, +S2. Absent: diastolic murmur, gallop, rubs, systolic murmur - Patient Status Disposition: Home, Self-Care Condition: Fair - Discharge Instructions Instructions: Asthma (DC), Acute Respiratory Distress Syndrome (DC) Follow Up With: Lopez Wallis CNP [Primary Care Provider] - 01/02/18 11:00 am
== END 2017-12-28 11:55 | disposition home or self-care (01) | DRG 775 ==
LOC: 2NNU 11:06 → EMEROO 11:06 → SUATTDRO 18:35 → 2NNU 20:47
PROVIDERS: ADMIT Internal Medicine; ATTEND Hospitalist